=== PATIENT | female | born 1965 | race Caucasian/White ===

== ENCOUNTER 2021-02-08 13:10 | Emergency (ER) | payer OTHER ==
[~2021-02-08 13:10] MED LIST: AUGMENTIN 500-1 EACH PO; CO Q-10100 MG PO; ETODOLAC ER600 MG PO; FIBER GUMMIES2 GM PO; GINGER ROOT550 MG PO; MELATONIN2.5 MG PO; METFORMIN HCL500 MG PO; NEOMYCIN-POLYMY10 ML EARBOTH; PEPTO-BISM262 MG/15 PO; PRILOSEC20 MG PO; PRINIVIL10 MG PO; TUMS200 MG PO; VITAMIN D-32000 UNIT PO; XANAX0.25 MG PO; ZANTAC150 MG PO
[2021-02-08 13:42] LABS: BASOPHIL 0.3 % (0-2); EOSINOPHIL 1.6 % (0-5); HCT 48.1 % (37.0-47.0); HGB 15.9 g/dl (12.5-16.0); LYMPHOCYTE 24.3 % (15-48); MCH 31.9 pg (25.0-31.0); MCHC 33.1 g/dL (32.0-36.0); MCV 96.6 fL (78.0-100.0); MONOCYTE 5.9 % (0-12); MPV 9.6 fL (6.0-9.5); NEUTROPHIL 67.4 % (41-80); NRBC 0; PLT 286 K/uL (150-400); RBC 4.98 M/uL (4.20-5.40); RDW 12.4 % (11.5-14.0); WBC 6.1 K/uL (4.0-10.5)
[2021-02-08 14:00] LABS: ALBUMIN 3.9 g/dL (3.4-5.0); BILIRUBIN - TOTAL 0.6 mg/dL (0.2-1.0); BUN/CREAT RATIO (CALC) 22.6 RATIO; CREATININE 0.62 mg/dL (0.51-0.95); GLOBULIN (CALCULATION) 3.6 g/dL; POTASSIUM 4.8 mmol/L (3.5-5.1); TOTAL PROTEIN 7.5 g/dL (6.4-8.2)
[2021-02-08 16:01] LABS: CORONAVIRUS 2019 SARS-COV-2 NEGATIVE (NEGATIVE); INFLUENZA A NAA NEGATIVE (NEGATIVE)
[2021-02-08] MEDS ORDERED: OMEPRAZOLE40 MG PO (16:28)
[2021-02-08] MEDS ORDERED: CYCLOBENZAPRINE10 MG PO (16:28)
== END 2021-02-08 17:20 | disposition home or self-care (01) ==
LOC: FER 13:10
PROVIDERS: Internal Medicine
DX: K21.9 Gastro-esophageal reflux disease without esophagitis (principal); R07.89 Other chest pain; M25.511 Pain in right shoulder; E11.9 Type 2 diabetes mellitus without complications; I10 Essential (primary) hypertension; Z79.84 Long term (current) use of oral hypoglycemic drugs; Z79.899 Other long term (current) drug therapy; Z20.822 Contact with and (suspected) exposure to COVID-19
CPT/HCPCS: 36415; 71045; 71275; 80053; 84484; 85025; 93005; J7040; Q9967; U0002